=== PATIENT | female | born 1975 | race Caucasian/White ===

== ENCOUNTER 2017-07-24 10:51 | Emergency (ER) | payer BC ==
[2017-07-24 11:38] VITALS: BP 120/77
--- NOTE | 2017-07-24 12:13 | UC ---
Throat Pain/Nasal Jonathan HPI - HPI Summary HPI Summary: Patient has been on clindamycin for 5 days for an abscess on her foot. Patient has pain and burning erythema and a white coating in her mouth. No fevers chills illness exposures. Patient is not diabetic denies polyuria, polydipsia, polyphagia. - History of Current Complaint Chief Complaint: UCGeneralIllness Stated Complaint: SORE THROAT Time Seen by Provider: 07/24/17 11:52 Hx Obtained From: Patient Hx Last Menstrual Period: ~07/07/17 ?: No Onset/Duration: Sudden Onset, Lasting Days - 1, Still Present Pain Intensity: 5 Pain Scale Used: 0-10 Numeric Cough: None - Allergies/Home Medications Allergies/Adverse Reactions: Allergies Allergy/AdvReac Type Severity Reaction Status Date / Time Penicillins Allergy Hives Verified 07/24/17 11:29 Home Medications: Home Medications Clindamycin Cap(NF) [Clindamycin Cap 300 mg Cap(NF)] 300 mg PO TID 07/24/17 [ History Confirmed 07/24/17] HYDROcodone/ACETAMIN 5-325 MG* [[place] 5-325 TAB*] 1 tab PO Q4H PRN MDD 4 [History Confirmed 07/24/17] Ibuprofen TAB* [Motrin TAB* 600 MG] 600 mg PO Q8H PRN 07/24/17 [History Confirmed 07/24/17] Silver Sulfadiazine 1%* [SILVadine 1%*] 1 applic TOPICAL DAILY 07/24/17 [ History Confirmed 07/24/17] PMH/Surg Hx/FS Hx/Imm Hx Previously Healthy: No - currently on clindamycin for foot abscess - Surgical History Surgical History: Yes Surgery Procedure, Year, and Place: Tubal Ligation, 2009, [place]; Essure, 2006 , [place]; Breast Augmentation, 2008, [place]; T&A, ~1993, [place] - Family History Known Family History: Positive: None - Social History Occupation: Employed Full-time Lives: With Family Alcohol Use: None Substance Use Type: None Smoking Status (MU): Heavy Every Day Tobacco Smoker Type: Cigarettes Amount Used/How Often: ~1 PPD Length of Time of Smoking/Using Tobacco: Since Age 17 Household Exposure Type: Cigarettes Review of Systems Constitutional: Negative Skin: Negative Eyes: Negative ENT: Sore Throat - Sore throat and mouth pain with erythema and white coating. No ulcerations noted, no pustulas Respiratory: Negative Cardiovascular: Negative Gastrointestinal: Negative Genitourinary: Negative Motor: Negative Neurovascular: Negative Musculoskeletal: Negative Neurological: Negative Psychological: Negative Is Patient Immunocompromised?: No All Other Systems Reviewed And Are Negative: Yes Physical Exam Triage Information Reviewed: Yes Appearance: Well-Appearing, No Pain Distress, Well-Nourished Vital Signs: Initial Vital Signs Temp 98.4 F 07/24/17 11:29 Pulse 74 07/24/17 11:29 Resp 16 07/24/17 11:29 BP 120/77 07/24/17 11:29 Pulse Ox 99 07/24/17 11:29 Vital Signs Reviewed: Yes Eye Exam: Normal Eyes: Positive: Conjunctiva Clear ENT Exam: Normal ENT: Positive: Normal ENT inspection, Hearing grossly normal, Pharyngeal erythema, TMs normal, Uvula midline. Negative: Nasal congestion, Nasal drainage , Tonsillar swelling, Tonsillar exudate, Trismus, Muffled voice, Hoarse voice, Dental tenderness, Sinus tenderness Dental Exam: Normal Neck exam: Normal Neck: Positive: Supple, Nontender, No Lymphadenopathy Respiratory Exam: Normal Respiratory: Positive: Chest non-tender, Lungs clear, Normal breath sounds, No respiratory distress, No accessory muscle use Cardiovascular Exam: Normal Cardiovascular: Positive: RRR, No Murmur, Pulses Normal, Brisk Capillary Refill Musculoskeletal Exam: Normal Musculoskeletal: Positive: Strength Intact, ROM Intact, No Edema Neurological Exam: Normal Neurological: Positive: Alert, Muscle Tone Normal Psychological Exam: Normal Psychological: Positive: Normal Response To Family, Age Appropriate Behavior Skin Exam: Other Skin: Positive: Other - Erythema and mouth and tongue with heavy white coating on tongue Throat Pain/Nasal Course/Dx - Course Assessment/Plan: Good oral hygiene dental care, nystatin swish and swallow 4 times a day, follow-up with PCP - Differential Dx/Diagnosis Provider Diagnoses: Oral candidiasis Discharge - Sign-Out/Discharge Documenting (check all that apply): Discharge/Admit/Transfer - Discharge Plan Condition: Stable Disposition: HOME Prescriptions: Nystatin SUSPENSION ORAL SYR* 500,000 units PO QID #200 ml Patient Education Materials: Oral Candidiasis (ED) Referrals: Vishnu Russo MD [Primary Care Provider] - 1 Week - Billing Disposition and Condition Condition: STABLE Disposition: HOME
== END 2017-07-24 12:20 | disposition home or self-care (01) ==
LOC: UCCORT 10:51
DX: B37.0 Candidal stomatitis (principal); Z79.2 Long term (current) use of antibiotics; Z88.0 Allergy status to penicillin; F17.210 Nicotine dependence, cigarettes, uncomplicated
CPT/HCPCS: 87651; 99202; G0463